=== PATIENT | male | born 1960 | race Caucasian/White ===

== ENCOUNTER 2016-10-19 04:14 | Emergency (ER) | payer OTHER ==
[~2016-10-19] VITALS: Ht 167.6 cm; Wt 82.0 kg
[~2016-10-19 04:14] MED LIST: BACTDS PO; CEPH-443 PO; TRAM50TA2 PO
[2016-10-19 04:25] VITALS: Ht 167.6 cm; Wt 82.0 kg
[2016-10-19] MEDS ORDERED: HYDROCODONE/APAP (5/325) TAB PO ONE (06:00)
--- NOTE | 2016-10-19 06:17 | ERD ---
ER Documentation Chief Complaint Date/Time DATE: 10/19/16 TIME: 06:10 Chief Complaint testicular pain/swelling x 3 days HPI This patient is a 56-year-old male with no significant medical history presenting to the emergency department for pain and burning sensation to the perineum. This pain has been ongoing for 1 week but worsening over the past 2 days. The patient states that it is worse with sitting and when showering. He denies any history of prostatic or testicular issues. He has taken no medication for pain relief. He denies urinary symptoms, nausea, vomiting, diarrhea, fevers, chills, trauma, or other symptoms. ROS All systems reviewed and are negative except as per history of present illness. Medications Home Meds Active Scripts Tramadol HCl (Tramadol HCl) 50 Mg Tablet, 50 MG PO Q6 Y for PAIN, #20 TAB Prov:MENDY ARDON MD 08/17/16 Sulfamethoxazole-Trimethoprim* (Bactrim* DS) 800-160 Mg Tab, 1 TAB PO BID for 5 Days, TAB Prov:FRANDY FERNÁNDEZ PA-C 05/27/16 Cephalexin* (Keflex*) 500 Mg Capsule, 500 MG PO QID for 10 Days, CAP Prov:FRANDY FERNÁNDEZ PA-C 05/27/16 Allergies Allergies: Coded Allergies: No Known Drug Allergies (Verified Allergy, Unknown, 10/19/16) PMhx/Soc History of Surgery: No Hx Neurological Disorder: No Hx Cardiac Disorders: No Hx Miscellaneous Medical Probl: Yes (DM) Hx Alcohol Use: Yes (occasional) Hx Substance Use: No Hx Tobacco Use: Yes Smoking Status: Never smoker FmHx Noncontributory for chief complaint Physical Exam Vitals Vital Signs Date Time Temp Pulse Resp B/P Pulse Ox O2 Delivery O2 Flow Rate FiO2 10/19/16 04:25 98.3 107 20 144/97 98 Physical Exam INITIAL VITAL SIGNS: Reviewed by me. GENERAL: Alert and interactive. No acute distress. HEAD: Head is normocephalic and atraumatic. EYES: EOMI. No scleral icterus. No conjunctival injection. ENT: Moist mucosa. NECK: Supple. Full range of motion. RESPIRATORY: Normal respiratory effort. Clear breath sounds bilaterally. No wheezing, rales, or rhonchi. CV: Regular rate and rhythm. Normal S1 S2. No S3 or S4. No murmurs. ABDOMEN: Soft, non-distended, non-tender. No guarding. No rebound. No masses. EXTREMITIES: No deformity. SKIN: Warm and dry. NEUROLOGIC: Alert and oriented x 4. Speech is normal. Moves all extremities equally. No motor or sensory deficits noted. Exam: Scrotum: Normal Hernia: None Testes/Epid: Non-tender w/ normal lie Perineum: There is a 2 cm x 2 cm warm, erythematous, indurated abscess just inferior to the right scrotum and the perineal area. The area is markedly tender to palpation but there is no purulent discharge present. Lymph: No inguinal lymphadenopathy Discharge: None Results 24 hrs Current Medications Medications (Trade) Dose Ordered Sig/[place]onte Route PRN Reason Start Time Stop Time Status Last Admin Dose Admin Acetaminophen/ Hydrocodone Bitart ([place] (5/325)) 1 tab ONCE ONCE PO 10/19/16 06:00 10/19/16 06:01 DC 10/19/16 06:18 Ceftriaxone Sodium (Rocephin) 1 gm ONCE ONCE IM 10/19/16 06:30 10/19/16 06:31 DC 10/19/16 06:39 Lidocaine (Xylocaine 1% (Mdv) 20 ml) 20 ml ONCE ONCE SC 10/19/16 06:30 10/19/16 06:31 DC 10/19/16 06:39 Procedures/MDM 56-year-old male presents secondary to complaints of abscess to the perennial area. On physical examination there is no scrotal erythema or edema or warmth or tenderness to palpation. There is an abscess present to the perineal area. The abscess is indurated and I do not believe it is possible to incise and drain it at this time. The patient will be given IM Rocephin in the department and a scrotal ultrasound was ordered to rule out any scrotal pathology. At this time I have low suspicion for testicular torsion, inguinal hernia, or other emergent conditions. PROCEDURE: Scrotal ultrasound CLINICAL INDICATION: Painful lump TECHNIQUE: Scrotal ultrasound was performed with sagittal and transverse views. Sutton scale and color imaging was performed. Images were reviewed on high resolution PACS monitors. COMPARISON: None available FINDINGS: The right testicle measures 3.5 x 1.8 x 2.3 cm. There is normal size and echogenicity and morphology of the right testicle with normal blood flow. The right epididymis is normal. No hydrocele is seen. Soft tissues are unremarkable. No mass or cyst or other abnormality is present. There is no evidence for a varicocele. The left testicle measures 2.3 x 1.1 x 1.7 cm. There is normal size and echogenicity and morphology of the left testicle with normal blood flow. The left epididymis is normal. No hydrocele is seen. Soft tissues are unremarkable. No mass or cyst or other abnormality is present. There is no evidence for a varicocele. Within the midline scrotal tissues inferior to the testes is an echogenic, nonvascular collection measuring 2.6 x 1.8 cm with thin hypoechoic rim. IMPRESSION: 2.6 x 1.8 cm echogenic collection within the midline scrotal tissues inferior to the testes. Findings may reflect a hematoma. Urologic consultation is recommended Primary impression: Abscess not requiring incision and drainage currently. The patient was informed to return in 48 hours for recheck of the area and possible incision and drainage at that time. The patient will be placed on antibiotics for outpatient management of abscess and prevention of any further cellulitis. The patient was given urology follow-up based off of radiologist recommendation after interpretation of scrotal ultrasound. The patient agrees with the plan to discharge. All questions and concerns were addressed. Departure Diagnosis: Primary Impression: Abscess Condition: Stable Patient Instructions: Abscess, Antiobiotic Treatment Only Additional Instructions: Return to the emergency department in 48 hours for repeat evaluation and possible incision and drainage. Follow-up with your primary care physician within 1 week. Return to the emergency department immediately should you have any new or worsening symptoms, uncontrolled fevers, or other unexplained symptoms. Take all medications as directed. LISSY ESTEBAN PA-C Oct 19, 2016 06:17
[2016-10-19] MEDS ORDERED: LIDOCAINE 1% (MDV) 20 ML INJ SC ONE (06:30)
[2016-10-19] MEDS ORDERED: CEFTRIAXONE 1 GM INJ IM ONE (06:30)
--- NOTE | 2016-10-19 08:02 | RADRPT ---
PROCEDURE: Scrotal ultrasound CLINICAL INDICATION: Painful lump TECHNIQUE: Scrotal ultrasound was performed with sagittal and transverse views. Sutton scale and co edgar imaging was performed. Images were reviewed on high resolution PACS monitors. COMPARISON: None available FINDINGS: The right testicle measures 3.5 x 1.8 x 2.3 cm. There is normal size and echogenicity and morphology of the right testicle with normal blood flow. The right epididymis is normal. No hydrocele is seen . Soft tissues are unremarkable. No mass or cyst or other abnormality is present. There is no evid ence for a varicocele. The left testicle measures 2.3 x 1.1 x 1.7 cm. There is normal size and echogenicity and morphology of the left testicle with normal blood flow. The left epididymis is normal. No hydrocele is seen. Soft tissues are unremarkable. No mass or cyst or other abnormality is present. There is no evidenc e for a varicocele. Within the midline scrotal tissues inferior to the testes is an echogenic, nonvascular collection me asuring 2.6 x 1.8 cm with thin hypoechoic rim. IMPRESSION: 2.6 x 1.8 cm echogenic collection within the midline scrotal tissues inferior to the testes. Findin gs may reflect a hematoma. Urologic consultation is recommended. RPTAT: HH .Sallie Willis MD, Date Time Electronically viewed and signed by .Sallie Willis MD, on 10/19/2016 08:02 .G/
[2016-10-19] MEDS ORDERED: BACTDS PO (08:23)
[2016-10-19] MEDS ORDERED: CEPH-443 PO (08:23)
[2016-10-19] MEDS ORDERED: HYDR-906 PO (08:28)
== END 2016-10-19 08:54 | disposition home or self-care (01) ==
LOC: FTE 04:14
DX: N49.2 Inflammatory disorders of scrotum (principal); E11.9 Type 2 diabetes mellitus without complications; Z87.891 Personal history of nicotine dependence
CPT/HCPCS: 76870; J0696; Z7610; 96372

== ENCOUNTER 2016-12-13 05:22 | Day surgery (SDC) | payer OTHER ==
[2016-12-12 17:32] VITALS: BMI 25.1
[2016-12-13] VITALS (14 sets, daily range): BP systolic 130–168; BP diastolic 70–92; PULSE 71–97; RESP 18–28; Ht 167.6 cm; Wt 80.4 kg
[~2016-12-13] VITALS: Ht 167.6 cm; Wt 80.4 kg
[2016-12-13] MEDS ORDERED: BUPIVACAINE 0.25% (MPF) 30 ML INJ ONE (07:13)
--- NOTE | 2016-12-13 07:18 | HPN ---
Date/Time of Note Date/Time of Note DATE: 12/13/16 TIME: 07:17 Interval H&P Admission Note Pt. seen H&P reviewed: No system changes ELISA LIM MD Dec 13, 2016 07:18
[2016-12-13] MEDS ORDERED: LIDOCAINE 2% (SDV) 5 ML INJ ONE (07:27)
[2016-12-13] MEDS ORDERED: SUCCINYLCHOLINE CHLORIDE 100 MG/5 ML SYG IV ONE (07:27)
[2016-12-13] MEDS ORDERED: ROCURONIUM 50 MG INJ ONE (07:27)
[2016-12-13] MEDS ORDERED: FENTAnyl 50 MCG/ML VIAL ONE (07:27)
[2016-12-13] MEDS ORDERED: PROPOFOL 20 ML ONE (07:27)
[2016-12-13] MEDS ORDERED: MIDAZOLAM 1 MG/ML 2 ML INJ ONE (07:27)
[2016-12-13] MEDS ORDERED: CEFAZOLIN 1 GM INJ ONE (07:35)
[2016-12-13] MEDS ORDERED: ONDANSETRON 4 MG INJ ONE (07:37)
[2016-12-13] MEDS ORDERED: DEXAMETHASONE 4 MG/ML 1 ML INJ ONE (07:37)
[2016-12-13] MEDS ORDERED: FAMOTIDINE 20 MG INJ ONE (07:37)
[2016-12-13] MEDS ORDERED: PHENYLephrine (100 MCG/ML) 5ML SYG ONE (07:39)
[2016-12-13] MEDS ORDERED: NEOSTIGMINE 3 MG/3 ML SYRINGE ONE (07:58)
[2016-12-13] MEDS ORDERED: GLYCOPYRROLATE 0.4 MG INJ ONE (07:58)
[2016-12-13] MEDS ORDERED: MEPERIDINE 25 MG INJ IV PRN (08:00)
[2016-12-13] MEDS ORDERED: PROCHLORPERAZINE 10 MG INJ IV PRN (08:00)
[2016-12-13] MEDS ORDERED: HYDROmorphONE (0.2 MG/ML) 10ML SYG IV PRN (08:00)
[2016-12-13] MEDS ORDERED: ONDANSETRON 4 MG INJ IV PRN ×2 (08:00→13:00)
[2016-12-13] MEDS ORDERED: DIPHENHYDRAMINE 50 MG INJ IV PRN (08:00)
[2016-12-13] MEDS ORDERED: OXYCODONE/ACETAMINOPHEN (5/325) TAB PO PRN ×5 (08:00→13:00)
[2016-12-13] MEDS ORDERED: FENTAnyl 50 MCG/ML VIAL IV PRN (08:00)
[2016-12-13] MEDS ORDERED: LABETALOL HCL 20MG INJ IV PRN (08:30)
[2016-12-13] MEDS ORDERED: morphine 2 MG INJ IV PRN (08:30)
[2016-12-13] MEDS ORDERED: hydrALAzine 20 MG INJ IV PRN (08:30)
--- NOTE | 2016-12-13 08:39 | OPR ---
DATE OF OPERATION: 12/13/2016 PREOPERATIVE DIAGNOSIS: Umbilical hernia without obstruction. OPERATION PERFORMED: Repair with small circular Proceed patch. POSTOPERATIVE DIAGNOSIS: Umbilical hernia without obstruction. SURGEON: Elisa Alford MD ANESTHESIA: General. ANESTHESIOLOGIST: Dr. Flynn OPERATIVE REPORT: After satisfactory general anesthesia was achieved, the abdomen was prepped and d raped in the usual fashion. A left circumumbilical incision was made and carried down to the subcut aneous tissues. The sac was dissected from the umbilicus down to the fascial ring. The sac was exc ised at the fascial ring with electrocautery dissection. The fascial defect measured 2 cm. A small Proceed circular patch was placed below the fascial defect as an underlay and then secured to healt hy fascia with its mesh straps utilizing interrupted 2-0 Novafil suture. Redundant straps were exci sed and discarded. The resultant repair was a tension-free underlay repair. The wound was infiltra lizz with 20 mL of 0.25% plain Marcaine. The subcutaneous was closed with 3-0 Vicryl and skin was cl osed with leslie. Operative blood loss was less than 5 mL. Sponge and needle counts were reported as correct x2. The patient tolerated the procedure well and without incident or complication. Dictated By: ELISA LUCAS/KENROY Conf#: [id number] DID#: [id number] CC: BELLE CHO MD;*EndCC*
== END 2016-12-13 10:10 | disposition home or self-care (01) ==
LOC: SDS 05:22 → EDSTATUS 07:30 → SDS 10:10
PROVIDERS: ATTEND Surgery
DX: K42.9 Umbilical hernia without obstruction or gangrene (principal); F17.200 Nicotine dependence, unspecified, uncomplicated
CPT/HCPCS: 49585; 88302; C1781; J0330; J0690; J1100; J2175; J2250; J2370; J2405; J2710; J3010; Z7512; Z7610

== ENCOUNTER 2018-08-27 19:13 | Emergency (ER) | END 2018-08-27 22:55 | disposition left against medical advice (07) ==